=== PATIENT | male | born 1990 | race Native Hawaiian/Other Pacific Islander ===

== ENCOUNTER 2019-05-18 20:57 | Outpatient (CLI) | payer OTHER | END 2019-05-18 21:08 | disposition short-term general hospital (02) | LOC: AMB 20:57 | DX: G40.802 Other epilepsy, not intractable, without status epilepticus (principal); R41.82 Altered mental status, unspecified | CPT/HCPCS: A0425; A0427 ==

== ENCOUNTER 2019-05-18 21:14 | Emergency (ER) | payer OTHER ==
[~2019-05-18] VITALS: Ht 182.9 cm; Wt 95.3 kg
[2019-05-18 22:02] LABS: PLATELET COUNT 326 K/uL (142-355)
[2019-05-18 22:14] LABS: POTASSIUM 4.4 mmol/L (3.6-5.2)
[2019-05-18 22:55] VITALS: BP 103/66; TEMP 97.3
== END 2019-05-18 22:55 | disposition home or self-care (01) ==
LOC: ED 21:14
PROVIDERS: Emergency Medicine
DX: R56.9 Unspecified convulsions (principal); Z91.14 Patient's other noncompliance with medication regimen; F15.90 Other stimulant use, unspecified, uncomplicated
CPT/HCPCS: 36415; 80053; 80185; 80307; 81000; 83735; 85027; 96365; 99284; Q2009

== ENCOUNTER 2019-08-23 20:52 | Outpatient (CLI) | payer OTHER | END 2019-08-23 20:56 | disposition short-term general hospital (02) | LOC: AMB 20:52 | DX: R56.9 Unspecified convulsions (principal); R41.0 Disorientation, unspecified | CPT/HCPCS: A0425; A0427 ==

== ENCOUNTER 2019-08-23 20:58 | Emergency (ER) | payer OTHER ==
[~2019-08-23] VITALS: Ht 182.9 cm; Wt 99.8 kg
[2019-08-23 22:12] LABS: PLATELET COUNT 326 K/uL (142-355)
[2019-08-23 22:14] LABS: POTASSIUM 4.9 mmol/L (3.6-5.2); SODIUM 140 mmol/L (136-145)
[2019-08-23 23:45] VITALS: BP 31/79; TEMP 98.1
== END 2019-08-23 23:45 | disposition home or self-care (01) ==
LOC: ED 21:04
PROVIDERS: Family Medicine
DX: R56.9 Unspecified convulsions (principal); S01.512A Laceration without foreign body of oral cavity, initial encounter
CPT/HCPCS: 36415; 80053; 80185; 81000; 85027; 87088; 96361; 96365; 99284; J1165

== ENCOUNTER 2021-06-21 17:03 | Emergency (ER) | payer OTHER ==
[~2021-06-21] VITALS: Ht 180.3 cm; Wt 83.9 kg
[2021-06-21 17:28] VITALS: BP 149/98; TEMP 98.8
== END 2021-06-21 22:18 | disposition home or self-care (01) ==
LOC: ED 17:03
DX: H10.89 Other conjunctivitis (principal)
CPT/HCPCS: 99283